=== PATIENT | female | born 2000 | race Caucasian/White ===

== ENCOUNTER 2022-06-18 18:11 | Outpatient (CLI) | payer OTHER, SELFPAY ==
[2022-06-18 22:12] LABS: Yeast No Yeast Seen (None Seen)
[2022-06-18 22:13] LABS: Clue Cells <20% Clue Cells Seen (None Seen); Trichomonas No Trichomonas Seen (None Seen)
[2022-06-19 00:27] LABS: Chlamydia DNA Amplified* NOT DETECTED (No Detected); GC DNA Amplified* NOT DETECTED (No Detected)
== END 2022-06-18 18:12 | disposition home or self-care (01) ==
PROVIDERS: PCP Nurse Practitioner Family; Visit Provider Nurse Practitioner Family
DX: N89.8 Other specified noninflammatory disorders of vagina (principal); N91.2 Amenorrhea, unspecified
CPT/HCPCS: 87210; 87491; 87591

== ENCOUNTER 2022-06-24 13:01 | Outpatient (CLI) | payer OTHER, SELFPAY ==
--- NOTE | 2022-06-24 13:00 | CRLHL7_ITS ---
For Patients: As a result of the Century Cures Act, medical imaging exams and procedure reports are released immediately into your electronic medical record. You may view this report before your referring provider. If you have questions, please contact your health care provider. INDICATION: Tremor. Difficulty speaking. TECHNIQUE: Multiplanar multisequence noncontrast MR images acquired. COMPARISON: None. FINDINGS: The ventricles and sulci are within normal limits for patient age. No mass effect or midline shift. No parenchymal signal abnormalities. No intracranial hemorrhage or pathologic extra-axial fluid collection. No diffusion restriction to suggest acute infarction. The major arterial flow voids of the skullbase are preserved. The globes are symmetric. The paranasal sinuses are well aerated. The mastoid air cells are clear. IMPRESSION: Unremarkable noncontrast MRI of the brain. Dictated by Fab Herron MD @ 06/24/2022 3:59:36 PM (Electronically Signed)
== END 2022-06-24 13:02 | disposition home or self-care (01) ==
LOC: MRI 13:01
PROVIDERS: PCP Nurse Practitioner Family; Visit Provider Nurse Practitioner Family
DX: H53.9 Unspecified visual disturbance (principal); R47.9 Unspecified speech disturbances
CPT/HCPCS: 70551

== ENCOUNTER 2022-11-18 15:18 | Outpatient (CLI) | payer OTHER, MEDICAID, SELFPAY ==
[2022-11-18 19:45] LABS: TSH With Reflex to FT4* 0.779 uIU/mL (0.270-4.200)
[2022-11-18 19:53] LABS: HIV 1/2/P24 Combo Screen* Negative (Negative)
[2022-11-18 20:03] LABS: Hepatitis C Virus Antibody* Negative (Negative)
[2022-11-18 20:52] LABS: Chlamydia DNA Amplified* NOT DETECTED (No Detected); GC DNA Amplified* NOT DETECTED (No Detected)
[2022-11-21 05:09] LABS: Rapid Plasma Reagin (RPR) Non Reactive (Non Reactive)
[2022-11-21 08:51] LABS: Hepa B Virus Surf Ag Conf Non Confirmed (Non Confirmed)
== END 2022-11-18 15:19 | disposition home or self-care (01) ==
PROVIDERS: PCP Nurse Practitioner Family; Visit Provider Obstetrics & Gynecology
DX: R53.83 Other fatigue (principal); Z11.3 Encounter for screening for infections with a predominantly sexual mode of transmission
CPT/HCPCS: 84443; 86592; 86703; 86803; 87341; 87491; 87522; 87591

== ENCOUNTER 2023-11-18 10:14 | Outpatient (CLI) | payer OTHER, MEDICAID, SELFPAY ==
[2023-11-18 14:36] LABS: Yeast No Yeast Seen (None Seen)
[2023-11-18 14:38] LABS: Clue Cells <20% Clue Cells Seen (None Seen); Trichomonas No Trichomonas Seen (None Seen)
[2023-11-18 16:34] LABS: Chlamydia DNA Amplified* NOT DETECTED (No Detected); GC DNA Amplified* NOT DETECTED (No Detected)
== END 2023-11-18 10:15 | disposition home or self-care (01) ==
PROVIDERS: PCP Nurse Practitioner Family; Visit Provider Nurse Practitioner Family
DX: Z11.3 Encounter for screening for infections with a predominantly sexual mode of transmission (principal); N89.8 Other specified noninflammatory disorders of vagina
CPT/HCPCS: 87210; 87491; 87591